=== PATIENT | female | born 1965 | race Caucasian/White ===

== ENCOUNTER 2016-08-12 07:38 | Inpatient (IN) ==
--- NOTE | 2016-08-11 21:08 | Discharge Summary ---
<Mariposa Ramos - Last Filed: 08/11/16 21:05> Date of Encounter: 08/11/16 - Discharge Diagnosis (1) Rotator cuff tear arthropathy of right shoulder Priority: Primary Status: Acute (2) Obesity Priority: Secondary Status: Acute Qualifiers: Obesity type: unspecified obesity type Obesity severity: morbid Qualified Code(s): E66.01 - Morbid (severe) obesity due to excess calories (3) HTN (hypertension) Priority: Secondary Status: Chronic Qualifiers: Hypertension type: essential hypertension Qualified Code(s): I10 - Essential (primary) hypertension - Discharge Medications Home Medications: OxyCODONE Immed Rel [Roxicodone 5 MG] 5 - 10 mg PO Q6HR PRN #40 tablet 08/11/16 [Rx] Ascorbic Acid [Vitamin C] 1,000 mg PO DAILY 08/12/16 [History] Lactobacillus Combination No.8 [Adult Probiotic] 1 cap PO DAILY 08/12/16 [ History] Losartan [Cozaar] 25 mg PO DAILY 08/12/16 [History] Pravastatin Sodium [Pravachol] 20 mg PO HS 08/12/16 [History] Allergies/Adverse Reactions: Allergies No Known Allergies Allergy (Verified 08/12/16 08:19) Primary care physician: Xenia Rosenthal - Patient Status Disposition: Home, Self-Care Condition: Good - Discharge Instructions Follow Up With: Dheeraj Paz MD [Partnered Physician] - 09/10/16 8:10 am Mariposa Ramos, PAC [Physician Patrol Police Lieutenant] - 08/22/16 9:30 am Xenia Rosenthal MD [Primary Care Provider] - Additional Instructions: Discharge Instructions: Total Shoulder Please call [facility] ([phone]), your Primary Care Physician, or report to the Emergency Room if you have any of the following symptoms: Nausea, vomiting, fever greater that 101.5, swelling, chest pain, shortness of breath, increased pain/redness/drainage/odor for your incision site, numbness/ tingling, or any other concerning symptoms. ACTIVITY: Always keep your arm in the sling. Do not raise your arm away from your body. Do not use your arm to help with getting in or out of bed. No weight bearing permitted. Only perform those exercises given to you by your therapist. MEDICATIONS: Upon discharge resume your home medications. Take all the medications as prescribed. Take a stool softener if taking narcotic pain medications. Stool softeners are only effective if you drink enough fluids. Drink 6-8 glass of water or fluids a day, unless this is not allowed for another health problem. Despite using stool softeners, if you haven't had a bowel movement in 3 days, please switch to a gentle laxative. Gentle laxatives are sold over the counter. You should have a bowel movement within 24 hours, if not call the office. You will be discharged from the hospital with a prescription for pain medication. You are encouraged to decrease the use of narcotic pain medication as tolerated. Should you require a refill, please call the office. [facility] prescribes narcotic pain medication for only 4-6 weeks after surgery. If you require pain medication beyond this time period, you may be referred to your Primary Care Physician or to the Pain Clinic for further evaluation. Plan ahead for refills on pain medication as many narcotics either need to be picked up at the office or mailed. It is best to call 48-72 hours in advance of needing a prescription refill so you don't run out of medication. To help control the post-operative pain, you may take NSAIDs (Aleve,Advil, Motrin, Ibuprofen, Naprosyn) or Tylenol as prescribed on the bottle in addition to the pain medication. WOUND CARE: Leave the dressing on until the followup appointment. You may change the dressing if it becomes saturated greater than 50%. Do not get the dressing wet at anytime. Wash your hands with antibacterial soap, rinse and dry prior to any wound care. If you have payton the visiting nurse or rehab facility can remove the stapes 10-14 days after surgery and place steri-strips across the wound. Leave the steri-strips in place until they fall off on their own. You may let water from the shower run on top of the steri-strips. If you do not have a visiting nurse or rehab facility, you will need to return to the office at 10-14 days for the payton to be removed. If you have itching or redness around the dressing call the office. FOLLOW-UP: Please follow up with your surgeon in the orthopedic clinic, as scheduled - Hospital Course Hospital course: Ms. Busby is a 50 year old female - Time Spent with Patient Total time spent providing and/or coordinating discharge services: <hDeeraj Paz - Last Filed: 08/14/16 13:53> Date of Encounter: 08/14/16 Time of Encounter: 13:52 - Discharge Diagnosis (1) Rotator cuff tear arthropathy of right shoulder Priority: Primary Status: Acute (2) Obesity Priority: Secondary Status: Chronic Qualifiers: Obesity type: unspecified obesity type Obesity severity: morbid Qualified Code(s): E66.01 - Morbid (severe) obesity due to excess calories (3) HTN (hypertension) Priority: Secondary Status: Chronic Qualifiers: Hypertension type: essential hypertension Qualified Code(s): I10 - Essential (primary) hypertension Primary care physician: Xenia Rosenthal - Patient Status Functional capacity at discharge: independent ambulation Overall status at discharge: patient is progressing back to baseline - Hospital Course Hospital course: Ms. Busby is a 50 year old female The patient had an uneventful postoperative course. They received antibiotics and physical therapy and were discharged in stable condition. There will follow -up in the office in 2 weeks. - Time Spent with Patient Total time spent providing and/or coordinating discharge services:
--- NOTE | 2016-08-12 07:52 | History & Physical Report ---
Date of Encounter: 08/12/16 Time of Encounter: 07:51 24 Hour HP Update - Instructions Instructions: If the History and Physical is less than 30 days old and was completed prior to A.M. admission and or procedure and has NOT been updated on calendar day of procedure please complete this update prior to performing procedure. - Update Patient reports changes in Medical Condition: No Changes in examination, assessment, or condition: No Changes in Medication: No Preop tests/diagnostics Reviewed: Yes Surgery Remains Indicated: Yes Consent for Planned Operative Procedure(s) Verified: Yes - Pre-Operative Checklist Preoperative Checklist Indicated: No Prophylactic Antibiotic Ordered: Yes Is VTE Prophylaxis Indicated?: Yes
[2016-08-12] MEDS ORDERED: Famotidine 20 MG/2 ML VIAL IVP ONE (08:06)
[2016-08-12] MEDS ORDERED: Gabapentin 300 MG CAPSULE PO ONE (08:07)
[2016-08-12] MEDS ORDERED: Ringers Solution, Lactated 1,000 ML IVC SCH ×2 (08:15→11:39)
[2016-08-12] MEDS ORDERED: Lidocaine -MPF 1% 2 ML VIAL ID ONE (08:34)
[2016-08-12] MEDS ORDERED: CeFAZolin Pre 2,000 MG/100 ML 2,000 MG/100 ML BAG IVPB ONE (08:34)
[2016-08-12] MEDS ORDERED: *HR* FentaNYL (PF) 100 MCG/2 ML VIAL ONE (08:56)
[2016-08-12] MEDS ORDERED: *HR* Propofol 200 MG/20 ML VIAL IVP ONE (08:56)
[2016-08-12] MEDS ORDERED: Lidocaine -MPF 2% 2 ML VIAL ONE (08:57)
[2016-08-12] MEDS ORDERED: *HR* Promethazine 25 MG/ML VIAL IVP PRN (08:59)
[2016-08-12] MEDS ORDERED: Ketorolac 30 MG/ML VIAL ONE ×2 (09:03→10:44)
--- NOTE | 2016-08-12 09:12 | Anesthesia Evaluation PreOp ---
Date of Encounter: 08/12/16 Time of Encounter: 09:10 - Past History Planned Operation: Rt Total Shoulder Replacement Cardiac History: HTN, Hyperlipidemia Pulmonary History: Denies Any Significant HX [employer] History: Seizures (Remote) Other Medical History: Other (MRDD mild, [place]) Anesthesia History: No Prior Anesthetic Complications : No (Hysterectomy) Alcohol Use: none Drug use: none Medications and Allergies OxyCODONE Immed Rel [Roxicodone 5 MG] 5 - 10 mg PO Q6HR PRN #40 tablet 08/11/16 [Rx] Ascorbic Acid [Vitamin C] 1,000 mg PO DAILY 08/12/16 [History] Lactobacillus Combination No.8 [Adult Probiotic] 1 cap PO DAILY 08/12/16 [ History] Losartan [Cozaar] 25 mg PO DAILY 08/12/16 [History] Pravastatin Sodium [Pravachol] 20 mg PO HS 08/12/16 [History] Allergies No Known Allergies Allergy (Verified 08/12/16 08:19) - Meds/Allergy Pre-op Review Medications Reviewed: Yes Allergies Reviewed: Yes Beta Blockers on Current Med List: No Anesthesia Results - Labs Laboratory Tests 07/31/16 07/31/16 09:00 09:00 Hgb 15.2 Hct 45.4 H Plt Count 238 Sodium 140 Potassium 4.1 BUN 10 Creatinine 0.73 - Imaging EKG: report reviewed (SR) Anesthesia Exam O2 Sat Height 1.7 m Height 1.7 m Height 1.7 m Weight 117.027 kg Weight 117.027 kg Weight 117.027 kg O2 Sat by Pulse Oximetry 96 Vital Signs Temp Pulse Resp BP Pulse Ox 98.1 F 83 18 152/84 96 08/12/16 08:13 08/12/16 08:13 08/12/16 08:13 08/12/16 08:13 08/12/16 08:13 Height: 5'7 Weight: 258 lbs NPO (# of Hours): MN Pain Scale: 0 - HEENT Pupil (Motor): Pupils equal, EOMI Mallampati: III Teeth: Normal Oral Opening: Less than or equal to 3 - [employer] LOC: Oriented [employer] Motor: Normal RUE, Normal LUE, Normal RLE, Normal LLE, Normal Face [employer] Sensory: Normal: RUE, LUE, RLE, LLE, Face - Cardiac Rhythm: Regular Murmur: None JVD: No Carotid Bruit: No - Pulmonary Breath Sounds: bilateral Clear Respiratory Effort: Symmetrical Anesthesia Assess/Plan ASA Score: 3 (HTN MRDD Morbid Obesity) Modified [place] Scale for Level of Consciousness: Cooperative, oriented, and tranquil Anesthetic Plan: General, Regional Monitoring Plan: Standard Monitors Recovery Plan: PACU (Discussed GA and RA, agrees to proceed)
[2016-08-12] MEDS ORDERED: Tetracaine/PF 20 MG/2 ML AMPUL ONE (09:22)
[2016-08-12] MEDS ORDERED: ROPIVACAINE HCL/PF 0.5% 30 ML VIAL ONE (09:22)
[2016-08-12] MEDS ORDERED: *HR* Midazolam HCl 5 MG/5 ML VIAL IVP ONE (09:23)
[2016-08-12] MEDS ORDERED: Bupivacaine/Clonidine Syringe 1 EACH SYRINGE ONE (09:23)
[2016-08-12] MEDS ORDERED: Dexamethasone 4 MG/ML VIAL ONE (10:00)
[2016-08-12] MEDS ORDERED: Ondansetron 4 MG/2 ML VIAL ONE (10:00)
--- NOTE | 2016-08-12 10:13 | Anesthesia Procedures ---
Date of Encounter: 08/12/16 Time of Encounter: 09:35 Procedures: Anesthesia - Nerve Block Procedure Date: 08/12/16 Time: 09:35 Allergies/Adv Reactions: nka Pre-op Diagnosis: right shoulder rc arthropathy Surgical Procedure: right shoulder rev TSA Checklist: Correct Patient Identifier, Correct procedure, History checked Correct side: Right Blood Thinner: No Monitor Applied: EKG, BP, Pulse Oximetry Supplemental Oxygen via Nasal Cannula (L/min): 2 Sedation: Versed (mg): 3 ((2.5mg decimal point not allowed in form)) Indication: Post Op Analgesia Pre-op Neuro Deficits: No Block Type: Supraclavicular, Other (ICB/CP) Catheter placed: No Sterile Technique: Yes Ultrasound used: Yes Anatomy identified: Yes Visual spread of Local: Yes Neuro Stimulation: Yes Nerve Stimulator Range: 0.2 - 0.4 mA Blood on Needle Aspiration: No Smooth Injection of Local: Yes Pain with Injection of Local: No Prep: Chlorhexadine Needle: 22 x 50 mm Stimuplex Local: 0.25% Bupivicaine w/Clonidine 20 mcg/cc, Tetracaine, Ropivacaine Volume (cc): 52 Number of Attempts: 1 Complications: None/effective block Vitals: Vital Signs/O2 Sat/Glucose, Most Recent Temp Pulse Resp BP Pulse Ox 98.1 F 81 18 185/102 100 08/12/16 08:13 08/12/16 09:32 08/12/16 08:13 08/12/16 09:32 08/12/16 09:32
--- NOTE | 2016-08-12 10:35 | Orthopedic Operative Note ---
Date of procedure: 08/12/16 Pre-op diagnosis: Right shoulder cuff tear arthropathy Post-op diagnosis: same Procedure: Procedure: Right Total Shoulder Replacment Reverse, Estimated blood loss: 100 cc Hardware:Arthrex medium glenoid baseplate, 2 4.5 screws. 1 6.5 screw, 39 lateral glenosphere, 6 humeral stem, poly insert 3 Exam Under anesthesia: Full motion and no instability Procedural Notes: Patient had grade 3 arthritic changes humeral head. Irreparable tear supraspinatus tendon. Operative procedure: The patient was brought to the operating room and placed on the operating room table. After general anesthesia was administered the operative shoulder was examined. Findings were noted. The patient was placed in the modified beachchair position. All pressure points were padded appropriately. And the head was stabilized in the neutral position. The operative extremity was prepped and draped in the sterile surgical fashion. The patient received IV antibiotics prior to skin incision. A standard deltopectoral approach was made to the operative shoulder. Incision was made to the skin and subcutaneous tissue,hemo stasis was obtained with Bovie cautery. Using careful blunt dissection the cephalic vein was identified and mobilized medially. The deltopectoral interval was developed and the clavipectoral fascia was incised. The subscap was released off the lesser tuberosity and tagged with #2 FiberWire it was irreparable. The humerus was dislocated patient noted to have irreparable tear supraspinatus tendon, and the humeral cut was made along the anatomic neck. Patient noted to have grade 3 arthritic changes humeral head. Anterior and posterior Bankart retractors were placed to expose the glenoid. The glenoid guide was seated and the centering hole was made. It was reamed with the appropriate reamer. The medium baseplate was seated and secured with (2) 4.5 screws and one 6.5 screw. The baseplate was irrigated and dried and the 39 lateral Glenosphere was seated and secured with the Coppola taper. The Coppola taper was tested and found to be secure the humerus was redislocated and prepared with the diaphyseal reamers, followed by a broaching process up to the appropriate size 6 in the patient's anatomic version. The metaphyseal reamer was then utilized. Trial reduction found the shoulder to be relocatable. Trial components were removed. The appropriate 6 stem was impacted in place in the patient's anatomic version. Trial reduction found the shoulder to be relocatable and stable with the appropriate 3. Trial component was removed and the real 3 implant was seated and secured the shoulder was reduced. The shoulder had excellent motion and excellent stability and no evidence of dislocation. The deep tissue was irrigated with pulse irrigation. The deltopectoral interval was closed with a running #1 PDS suture, subcutaneous tissue was irrigated and closed with 0 PDS suture, the skin was closed with skin payton. The patient was placed in a sterile dressing, abduction brace and extubated. The patient was then transferred to the recovery room in stable condition. Anesthesia: MAC Surgeon: Dheeraj Paz Director Investment Banking: Mariposa Ramos Condition: stable Disposition: PACU
[2016-08-12 11:32] LABS: Hematocrit 42.6 % (35.3-44.9); Hemoglobin 14.4 g/dL (11.5-15.4)
[2016-08-12] MEDS ORDERED: MOM Conc 10 ML UD.LIQ PO PRN (11:39)
[2016-08-12] MEDS ORDERED: Temazepam 15 MG CAPSULE PO PRN (11:39)
[2016-08-12] MEDS ORDERED: Lactobacillus 1 EACH CAP.SPRINK PO SCH (11:39)
[2016-08-12] MEDS ORDERED: Naloxone 0.4 MG/ML INJ IVP PRN (11:39)
[2016-08-12] MEDS ORDERED: ceFAZolin 2,000 MG in D5% in Water 100 ML IVPB SCH (11:39)
[2016-08-12] MEDS ORDERED: Ascorbic Acid 500 MG TABLET PO SCH (11:39)
[2016-08-12] MEDS ORDERED: *HR* HYDROmorphone (PF) 1 MG/ML SYRINGE IVP PRN (11:39)
[2016-08-12] MEDS ORDERED: Ondansetron 4 MG/2 ML VIAL IVP PRN (11:39)
[2016-08-12] MEDS ORDERED: *HR* OxyCODONE Immed Rel 5 MG TABLET PO PRN ×2 (11:39)
[2016-08-12] MEDS ORDERED: Sennosides 8.6 MG TABLET PO PRN (11:39)
--- NOTE | 2016-08-12 13:41 | Anesthesia Evaluation Post Op ---
Date of Encounter: 08/12/16 Time of Encounter: 13:40 - Vital Signs Vital Signs: Vital Signs/O2 Sat/Glucose, Most Current Temp Pulse Resp BP Pulse Ox 08/12/16 12:35 98.1 F 86 17 121/80 95 08/12/16 12:21 98.0 F 81 16 117/78 94 08/12/16 12:05 98.0 F 81 16 119/80 95 08/12/16 11:26 98.1 F 86 15 149/87 95 08/12/16 11:16 85 16 161/93 95 08/12/16 11:06 91 15 158/99 94 08/12/16 10:56 98.3 F 90 16 156/98 95 - Lungs Lungs: Clear Ascult./Percussion - Airway Airway: Non-obstructed - Cardiovascular Regular Rate - Mental Status Mental Status: Alert & Oriented, Answers Appropriately - Pain Pain Scale: 1 - Nausea Vomiting Nausea Vomiting: Not Present - Hydration Hydration: NPO - Discharge PostOp Status: Transfer Patient to floor
[2016-08-12 16:41] VITALS: BP 136/85
[2016-08-12] MEDS ORDERED: *HR* Enoxaparin 30 MG/0.3 ML SYRINGE SQ SCH ×2 (18:00)
== END 2016-08-12 17:07 | disposition home or self-care (01) | DRG 483 ==
LOC: SAMDAY 07:38 → 3NENU 11:29
PROVIDERS: ADMIT Orthopaedic Surgery; ATTEND Orthopaedic Surgery